=== PATIENT | female | born 1960 | race Caucasian/White ===

== ENCOUNTER 2025-07-10 14:10 | Emergency (ER) | payer MEDICARE, OTHER | END 2025-07-10 16:23 | disposition left against medical advice (07) | LOC: ERS 14:10 | DX: S01.111A Laceration without foreign body of right eyelid and periocular area, initial encounter (principal); Z79.899 Other long term (current) drug therapy; Z53.20 Procedure and treatment not carried out because of patient's decision for unspecified reasons; W19.XXXA Unspecified fall, initial encounter | CPT/HCPCS: 99282 ==